=== PATIENT | female | born 1950 | race Two or more races ===

== ENCOUNTER 2018-12-21 18:23 | Outpatient (CLI) | payer OTHER | END 2018-12-21 18:29 | disposition home or self-care (01) | LOC: RAD 18:23 | DX: M25.512 Pain in left shoulder (principal); M25.572 Pain in left ankle and joints of left foot ==

== ENCOUNTER 2019-02-16 14:07 | Outpatient (CLI) | payer OTHER | END 2019-02-16 14:10 | disposition home or self-care (01) | LOC: RAD 14:07 | DX: M25.562 Pain in left knee (principal) ==

== ENCOUNTER 2019-03-23 11:37 | Outpatient (CLI) | payer OTHER | END 2019-03-23 12:00 | disposition home or self-care (01) | LOC: NUCLEAR 11:37 | DX: M81.0 Age-related osteoporosis without current pathological fracture (principal) ==

== ENCOUNTER 2019-06-03 10:53 | Emergency (ER) | payer OTHER ==
[~2019-06-03] VITALS: Ht 152.4 cm; Wt 63.5 kg
[2019-06-03] MEDS ORDERED: ZESTRIL5 MG (11:16)
[2019-06-03] MEDS ORDERED: LANTUS SOL100 UNIT/1 (11:17)
[2019-06-03] MEDS ORDERED: HUMALOG100 UNIT/2 (11:17)
== END 2019-06-03 17:27 | disposition home or self-care (01) ==
LOC: ER 10:53
DX: E11.65 Type 2 diabetes mellitus with hyperglycemia (principal); M54.31 Sciatica, right side

== ENCOUNTER 2025-03-27 13:34 | Outpatient (CLI) | payer OTHER ==
[~2025-03-27 13:34] MED LIST: HUMALOG100 UNIT/2; LANTUS SOL100 UNIT/1; ZESTRIL5 MG
== END 2025-03-27 13:37 | disposition home or self-care (01) ==
LOC: RAD 13:34
PROVIDERS: ATTEND Orthopaedic Surgery
DX: M25.562 Pain in left knee (principal)